=== PATIENT | male | born 1990 | race African-American/Black ===

== ENCOUNTER 2017-01-10 19:52 | Emergency (ER) | payer OTHER ==
--- NOTE | ~2017-01-10 | EKG ---
PATIENT: ISSAC CARLOS UNIT #: [id number] Ventricular Rate: 84 BPM Atrial Rate: 84 BPM P-R Interval: 156 ms QRS Duration: 94 ms Q-T Interval: 344 ms QTC Calculation(Bezet): 406 ms P [place]: 50 degrees Calculated R [place]: 48 degrees Calculated T [place]: 14 degrees Diagnosis Line: Poor data quality, interpretation may be Diagnosis Line: adversely affected Diagnosis Line: Normal sinus rhythm Diagnosis Line: T wave abnormality, consider lateral ischemia Diagnosis Line: Abnormal ECG Diagnosis Line: No previous ECGs available Diagnosis Line: Confirmed by DIEGO VARGHESE MD ([id number]) on Diagnosis Line: 01/12/2017 3:30:09 PM INTERPRETING MD: ABIMAEL ROSARIO
--- NOTE | ~2017-01-10 | CR72 ---
[facility] A Service of [facility] & [facility] RADIOLOGY TEXT RESULTS PATIENT: ISSAC CARLOS LOCATION: SED : 88 UNIT #: [id number] AGE: [address]: Gary Isaacs MD SEX: M ORDER DR: [id number] [place] [id number] E MR#: [id number] Acc #: [id number] NAME: ISSAC CARLOS : 1990 SEX: M STUDY DATE/TIME: 01/10/2017 19:34 UNIT: SED ROOM: STUDY DESCRIPTION: CR Chest Single View Portable Attending Physician: Gary Isaacs M.D. Ordering Physician: Gary Isaacs M.D. Primary Care Physician: No Primary Care Physician MEDICAL IMAGING REPORT This report is preliminary unless electronic signature is present. EXAM Portable chest. INDICATIONS Chest pain since yesterday. PROCEDURE Frontal view chest. COMPARISON None. FINDINGS Heart size within normal limits. Lungs are clear. No pleural fluid. No pneumothorax. IMPRESSION No active process. Dictated by... Valdez Arriaza M.D. THIS IS AN ELECTRONICALLY VERIFIED REPORT Valdez Arriaza M.D. at 01/13/2017 7:00 AM EED/gz TD: 01/11/2017 09:36 JOB #: [id number] MEDICAL IMAGING REPORT
[2017-01-10 19:32] LABS: BASOPHIL# 0.1 X10e3 (0-0.3); DIFF IND NO; EOSINOPHIL# 0.4 X10e3 (0-0.7); EOSINOPHIL% 3.6 % (0.0-7.0); HEMATOCRIT 47.5 % (38.0-50.0); HEMOGLOBIN 16.1 gm/dL (13.0-16.0); LYMPHOCYTE# 2.3 X10e3 (1.0-3.5); LYMPHOCYTE% 22.8 % (17.0-45.0); MEAN CELL VOLUME 87.6 FL (83-96); MEAN CORPUSCULAR HEMOGLOBIN 29.8 PG (28-34); MONOCYTE% 9.5 % (3.0-12.0); NEUTROPHIL# 6.3 X10e3 (1.5-7.1); NEUTROPHIL% 63.1 % (40-75); PLATELET COUNT 310 X10e3 (140-420); RED BLOOD COUNT 5.42 X10e (3.90-5.60); RED CELL DISTRIBUTION WIDTH 14.3 % (11.0-15.5); WHITE BLOOD COUNT 10.1 X10e3 (4.0-10.5)
[2017-01-10 19:38] LABS: PROTHROMBIN TIME (PATIENT) 11.8 SECONDS (9.5-12.4)
[2017-01-10 19:45] LABS: PARTIAL THROMBOPLASTIN TIME 32.9 SECONDS (25.6-38.1)
[2017-01-10 19:47] LABS: ALBUMIN SERUM 4.2 g/dL (3.5-5.0); ALKALINE PHOSPHATASE 53 U/L (32-92); ALT (SGPT) 82 U/L (10-40); AST (SGOT) 35 U/L (10-42); BILIRUBIN, DIRECT 0.1 mg/dL (0.0-0.2); BILIRUBIN,INDIRECT 0.5 mg/dL (0.0-0.9); BILIRUBIN,TOTAL 0.6 mg/dL (0.2-2.0); BLOOD UREA NITROGEN 14 mg/dL (9-23); BUN/CREATININE RATIO 12.72; CALCIUM SERUM 9.5 mg/dL (8.4-10.2); CARBON DIOXIDE 31 mmol/L (22-31); CHLORIDE 98 mmol/L (100-111); CREATININE SERUM 1.1 mg/dL (0.6-1.4); GLOM FILT RATE Estimated ABOVE60 mL/min (>60); GLUCOSE FASTING 83 mg/dL (70-110); PROTEIN TOTAL SERUM 8.5 g/dL (6.0-8.3); SODIUM 137 mmol/L (135-145)
[2017-01-10 19:50] LABS: POC - TROPONIN <0.05 ng/mL (<=0.05)
[~2017-01-10 19:52] MED LIST: QBRELIS1 MG/1 ML
== END 2017-01-10 20:26 | disposition home or self-care (01) ==
LOC: SED 19:52
PROVIDERS: Emergency Medicine
DX: R07.89 Other chest pain (principal)
CPT/HCPCS: 36415; 71010; 80048; 80076; 82553; 83874; 84484; 85025; 85610; 85730; 93005; 99284